=== PATIENT | female | born 1945 | race Caucasian/White ===

== ENCOUNTER 2016-05-25 02:15 | Inpatient (IN) | payer MEDICARE, MEDICAID ==
[2016-05-25] MEDS ORDERED: BELLADONNA ALKALOIDS/PHENOBARB 60 ML BTL PO ONE (02:20)
[2016-05-25] MEDS ORDERED: MAG HYDROX/ALUMINUM HYD/SIMETH 30 ML UDC PO ONE (02:20)
[2016-05-25] MEDS ORDERED: LIDOCAINE HCL 20 ML UDC MM ONE (02:20)
--- NOTE | 2016-05-25 02:28 | ERNOTE ---
Chest Pain/Cardiac HPI Date of Service: 05/25/16 Chief Complaint: Chest Pain Time Seen by Provider: 05/25/16 02:19 Source: patient, EMS Exam Limitations: no limitations Immunizations: IMMUNIZATION HX Immunizations Up to Date Yes History of Influenza Vaccine Yes Hx Pneumococcal Vaccination Yes Allergies/Adverse Reactions: Allergies No Known Drug Allergies Allergy (Verified 05/25/16 02:25) Home Medications: HOME MEDICATIONS Albuterol Sulfate [Proair Hfa] 2 puff IH Q4H PRN 05/25/16 [Last Taken Unknown] Furosemide [Lasix] 80 mg PO BID 05/25/16 [Last Taken Unknown] Insulin Glargine,Hum.rec.anlog [Lantus] 50 unit SQ BID 05/25/16 [Last Taken Unknown] Insulin Regular, Human [Humulin R] 5 unit SC ACHS 05/25/16 [Last Taken Unknown] Levothyroxine Sodium [Synthroid] 125 mcg PO DAILY 05/25/16 [Last Taken Unknown] Nitroglycerin [Nitrostat] 0.4 mg SL Q5MIN PRN 05/25/16 [Last Taken Unknown] Omeprazole 40 mg PO DAILY 05/25/16 [Last Taken Unknown] Rivaroxaban [Xarelto] 20 mg PO DAILY 05/25/16 [Last Taken Unknown] traMADol HCL [Ultram] 50 mg PO Q12H PRN 05/25/16 [Last Taken Unknown] Narrative: 70-year-old female with history of coronary disease and previous TN states that she got up to go to the bathroom early this morning and felt a sharp pain in her chest. When asked for the location of the pain it is actually in her epigastric area and not in her chest. The pain is associated with some shortness of breath but no nausea vomiting or diaphoresis. She was given aspirin and 2 nitroglycerin at the care home and additional nitroglycerin in the ambulance and the pain persisted. EKG shows no acute changes. Review of Systems - Review of Systems Constitutional: Present: no symptoms reported EYE: Present: no symptoms reported ENT: Present: no symptoms reported Respiratory: Present: no symptoms reported Cardiology: Present: See HPI Gastrointestinal/Abdominal: Present: See HPI Genitourinary: Present: no symptoms reported Musculoskeletal: Present: no symptoms reported Skin: Present: no symptoms reported Neurological: Present: no symptoms reported Endocrine: Present: no symptoms reported Hematologic/Lymphatic: Present: no symptoms reported Psych: Present: no symptoms reported - Patient's Past Medical History Patient History - Medical: Anemia, Anxiety, Diabetes Type 2, Depression, GERD, Hypothyroidism, Obesity, Other Patient History - Cardiac/Respiratory: Angina, CHF, COPD, CVA/Stroke, Hypertension, Hyperlipidemia, Myocardial Infarction, Other - Pulmonary hypertension Patient History - Cancer: No Hx of Cancer Patient History - Surgical Procedures: Cataracts, Cholecystectomy, Colonoscopy, EGD, Hysterectomy, Pacemaker, Total Knee Replacement, T & A - Family History Father Family History - Medical: Family History - Cardiac/Respiratory: Coronary Heart Disease Family History - Cancer: Other - cancer type unknown Mother Family History - Medical: Family History - Cancer: Other - cancer, type unkonwn Sister Family History - Medical: Diabetes Type 1, Renal Failure - Social History Living Situations: home Does anyone smoke in the home?: Yes Alcohol Use: none Drug Use: none Physical Exam - Physical Exam General Appearance: Present: wd/wn, alert, moderate distress Eye Exam: Normal inspection: bilateral, PERRL: bilateral Ears, Nose, Throat: Present: normal ENT inspection, hearing grossly normal, normal pharynx Neck: Present: normal inspection, nontender Respiratory: Present: no respiratory distress, normal breath sounds, no accessory muscle use, chest nontender, lungs clear Cardiovascular/Chest: Present: regular rate, rhythm, no murmur, normal peripheral pulses Gastrointestinal/Abdominal: Present: normal bowel sounds, nondistended, soft, no organomegaly, tenderness - marked pain to palpation of the epigastric area which reproduces the patient's "chest pain" Rectal Exam: Present: deferred Back Exam: Present: normal inspection, normal range of motion, no CVA tenderness , no vertebral tenderness Extremity Exam: Present: normal inspection, non-tender, no edema, normal range of motion Neurological Exam: Present: alert, oriented, normal mood/affect, no motor/ sensory deficits Skin Exam: Present: normal color, warm/dry Lymphatic Exam: Present: no adenopathy ED Progress - Results and Orders Patient's Lab Results:: I have reviewed the patient's lab results. Results and Orders: Patient has a marked anemia with a hemoglobin 9.1 but in previous studies most of her hemoglobins are in the range between 9.1 and 9.8 over the past many months. Potassium is low at 3.2. Troponin level was normal at 0.031 but will need to be rechecked in a few hours - Vital Signs Patient's Vital Signs:: I have reviewed the patient's vital signs. - EKG EKG: NSR, supraventricular tachycardia, other - intraventricular conduction delay - X-Ray X-Ray #1 X-Ray: chest - no acute changes Plan - Plan Plan: Patient received no relief from nitroglycerin and only minimal relief with a GI cocktail. Her initial troponin level is 0.031. We will need to admit the patient for further observation and rule out TN with further studies. Discussed with hospitalist Rere Taylor Departure - Departure Clinical Impression: Chest pain of uncertain etiology, Epigastric pain Anemia Qualifiers: Anemia type: unspecified type Qualified Code(s): D64.9 - Anemia, unspecified Disposition: [facility] Condition: Stable Referrals: Adan West MD [Primary Care Provider] -
[2016-05-25 02:54] LABS: Hematocrit 29.8 % (37.0-47.0); Hemoglobin 9.1 gm/dL (12.5-16.0); Mean Cell Volume 86.4 fl (78-100); Mean Corpuscular Hemoglobin 26.4 pg (27-31); Mean Corpuscular Hgb Conc 30.5 g/dl (32-36); Mean Platelet Volume 9.9 fl (6.0-9.5); Neutrophil # 6.5 K/mm3 (1.3-6.0); Platelet Count 283 K/mm3 (150-450); Red Blood Count 3.45 M/mm3 (4.2-5.4); Red Cell Distribution Width 17.8 % (11.5-14.0); White Blood Count 11.2 K/mm3 (4.0-10.5)
[2016-05-25 03:14] LABS: Albumin * 2.7 gm/dl (3.4-5.0); Anion Gap 12.8 mmol/L (6.8-13.8); BUN/Creatinine Ratio 17.5 (9.0-21.6); Bilirubin, Total 0.7 mg/dL (0.0-1.1); Ca. Corrected For Albumin 9.4 mg/dL (8.4-10.2); Calcium * 8.7 mg/dL (7.9-10.9); Carbon Dioxide 29.4 mmol/L (24-32.6); Potassium 3.2 mmol/L (3.4-4.6); Total Protein 6.6 gm/dL (6.2-8.2); Troponin I 0.031 ng/ml (0.00-0.10)
[2016-05-25] MEDS ORDERED: POTASSIUM CHLORIDE 20 MEQ TABLET.SA PO ONE (05:59)
[2016-05-25] MEDS ORDERED: ALBUTEROL SULFATE 200 PUFF INHALER IH PRN (06:03)
[2016-05-25] MEDS ORDERED: NITROGLYCERIN 0.4 MG/TAB BTL SL PRN (06:03)
[2016-05-25] MEDS ORDERED: MAG HYDROX/ALUMINUM HYD/SIMETH 148 ML BTL PO PRN (06:08)
[2016-05-25] MEDS: INSULIN REGULAR, HUMAN 100 UNITS/ML VIAL SC SCH ×4 (06:16→20:17)
[2016-05-25] MEDS ORDERED: DEXTROSE 4 GM/TAB BTL ONE (06:19)
[2016-05-25] MEDS ORDERED: DEXTROSE 4 GM/TAB BTL PO STA (06:21)
--- NOTE | 2016-05-25 06:38 | HP ---
<Rere Taylor - Last Filed: 05/25/16 07:30> Chief Complaint - Chief Complaint Date of Service: 05/25/16 Time of Service: 06:02 Chief Complaint: cp History of Present Illness: Pt is a 70-year-old [facility] pt of Dr. West who presented to the ER with complaints of CP. She states that the pain started this am around 0130. She rates the pain an 8/10, describes the pain as sharp and constant. Location of pain is mid- epigastric area it does not radiate. No other associated symptoms are involved. Nothing makes the pain better, states that with deep breath her pain gets worse. PMH includes:CAD, DMII, KS, CVA, CHF, Pulm HTN, HTN, HLD, hypothyroidism , CRF, and GERD. She was given aspirin and 2 nitroglycerin at the [facility] and additional nitroglycerin in the ambulance and the pain persisted. She was also given a GI cocktail upon arrival to the ER with minimal relief. EKG shows no acute changes. Chest ray revealed stable right lower lung field lentricular opacity suggestive of atelectasis or pseudo-opacity r/t pleural effusion and increased vascular markings. Laboratory findings were significant for H/H 9.1/ 29.8, K+ 3.2, glucose 45, troponin negative. She will be admitted to observation for further treatment and workup including AMI r/o, however given her complicated medical history she could end up with a prolonged medical admission. - Patient's Past Medical History Patient History - Medical: Anemia, Anxiety, Diabetes Type 2, Depression, GERD, Hypothyroidism, Obesity, Other Patient History - Cardiac/Respiratory: Angina, CHF, COPD, CVA/Stroke, Hypertension, Hyperlipidemia, Myocardial Infarction, Other - Pulmonary hypertension Patient History - Cancer: No Hx of Cancer Patient History - Surgical Procedures: Cataracts, Cholecystectomy, Colonoscopy, EGD, Hysterectomy, Pacemaker, Total Knee Replacement, T & A Patient History - Other: None - Family History Father Family History - Medical: Family History - Cardiac/Respiratory: Coronary Heart Disease Family History - Cancer: Other - cancer type unknown Mother Family History - Medical: , Diabetes Type 1 Family History - Cancer: Other - cancer, type unkonwn Sister Family History - Medical: Diabetes Type 1, Renal Failure - Social History Living Situations: [facility] Does anyone smoke in the home?: No Smoking Status: Former smoker Have you smoked in the past 12 months: No Do you dip or chew tobacco: No Smoking Start Date: 05/25/67 Smoking Stop Date: 05/25/72 Patient requests Smoking Cessation Consult: No Initiate information on Smoking Cessation: No Alcohol Use: none Drug Use: none - Immunizations Immunizations Up to Date: Yes Hx Pneumococcal Vaccination: Yes History of Influenza Vaccine: Yes Review Of Systems (GEN) - Review of Systems Generalized/Overall Review: Present: No Symptoms Reported EENTM: Present: No Symptoms Reported Respiratory: Present: No Symptoms Reported Cardiac: Present: Chest Pain - 01/07-however resting comfortable with no s/s of distress Abdominal: Present: No Symptoms Reported Genitourinary: Present: No Symptoms Reported Musculoskeletal: Present: No Symptoms Reported Neurological: Present: No Symptoms Reported Skin: Present: No Symptoms Reported Endocrine: Present: No Symptoms Reported Allergies/Adverse Reactions: Allergies Allergy/AdvReac Type Severity Reaction Status Date / Time No Known Drug Allergies Allergy Verified 05/25/16 02:25 Home Medications: HOME MEDICATIONS Albuterol Sulfate [Proair Hfa] 2 puff IH Q4H PRN 05/25/16 [Last Taken Unknown] Furosemide [Lasix] 80 mg PO BID 05/25/16 [Last Taken Unknown] Insulin Glargine,Hum.rec.anlog [Lantus] 50 unit SQ BID 05/25/16 [Last Taken Unknown] Insulin Regular, Human [Humulin R] 5 unit SC ACHS 05/25/16 [Last Taken Unknown] Levothyroxine Sodium [Synthroid] 125 mcg PO DAILY 05/25/16 [Last Taken Unknown] Nitroglycerin [Nitrostat] 0.4 mg SL Q5MIN PRN 05/25/16 [Last Taken Unknown] Omeprazole 40 mg PO DAILY 05/25/16 [Last Taken Unknown] Rivaroxaban [Xarelto] 20 mg PO DAILY 05/25/16 [Last Taken Unknown] traMADol HCL [Ultram] 50 mg PO Q12H PRN 05/25/16 [Last Taken Unknown] Exam - Exam Vital Signs: Vital Signs - Last Taken Temp 36.3 C L 05/25/16 04:37 Pulse 104 H 05/25/16 04:37 Resp 24 H 05/25/16 04:37 BP 115/66 05/25/16 04:37 Pulse Ox 95 05/25/16 04:37 Constitutional: Present: Alert, Oriented x3, Cooperative, No distress, Morbidly obese ENT Exam: Present: normal ENT inspection, hearing grossly normal Eye Exam: bilateral eye: normal inspection, PERRL Back Exam: Present: normal inspection Respiratory: Present: chest non-tender, no respiratory distress, no accessory muscle use, decreased breath sounds Cardiovascular/Chest: Present: normal peripheral pulses, regular rate, rhythm, no murmur, other - left chest permanet pacemaker present Peripheral Pulses: dorsalis-pedis (R): 2+, dorsalis-pedis (L): 2+, radial (R): 2 +, radial (L): 2+ Abdomen: Present: Normal bowel sounds, soft, nontender Extremity: Present: normal range of motion, non-tender, normal inspection, no calf tenderness, normal capillary refill, lower extremity edema - +2 pitting, pedal edema Skin Exam: Present: normal color, warm/dry, no cyanosis Neurologic: Present: no motor/sensory deficits, alert, normal mood/affect, oriented x 3 Appearance: Present: appropriate appearance, appropriate insight, neat Eye contact: Present: cooperative, good eye contact, normal speech Thoughts: Present: normal thought pattern, no apparent hallucination Diagnostic Studies: Laboratory Results Laboratory Tests 05/25/16 05/25/16 05/25/16 02:40 02:40 06:40 WBC 11.2 H RBC 3.45 L Hgb 9.1 L Hct 29.8 L Plt Count 283 Sodium 144 H Potassium 3.2 L BUN 29 H Creatinine 1.66 H BUN/Creatinine Ratio 17.5 AST 12 ALT 15 L Alkaline Phosphatase 85 Troponin I 0.031 B-Natriuretic Peptide 5096 H Total Protein 6.6 Albumin 2.7 L Assessment/Plan - Assessment/Plan (1) Chest pain of uncertain etiology Assessment: Unclear etiology at this point. Pain was reproducible with palpation by ER MD, however not on my examine. Pt states the pain is a 8/10, but is resting comfortably with no s/s of distress. All cardiac markers have been negative. Chest ray with increase vascular markings and trace right pleural effusion, BNP elevated in the 5000's, this is probably the source of pain, will diuresis appropriately and continue to monitor for today. -Repeat troponin at 0700 -Continuous telemetry -Maalox PRN for indigestion Problem: Acute (2) Anemia of chronic disease Assessment: Anemia of chronic disease. H/H stable at 9.1/29.8---> baseline . -CBC in am Problem: Chronic (3) CKD (chronic kidney disease), stage III Assessment: Creatinine stable at 1.66---> baseline 1.6. Repeat labs in am. -CMP in am Problem: Chronic (4) COPD (chronic obstructive pulmonary disease) Assessment: Stable -Proair 2puffs BID Problem: Chronic QualifierTitle: COPD type: C Chronic bronchitis type: C Emphysema type : E (5) Chronic systolic CHF (congestive heart failure) Assessment: Chest xray with slightly increased vascular markings from prior. Trace right pleural effusion. BNP elevated in the 5000's. BLE edema. Will switch to IV lasix , add PO K+ and repeat labs in the morning. -DC PO lasix -CMP in am -20meq PO K+ TID -80meq IV lasix BID -BNP in am -IS Problem: Chronic (6) Depression Problem: Chronic QualifierTitle: Depression Type: D Major depression recurrence: recurrent Active/Remission status: A Major depression episode severity: M Psychotic features: P Trimester: T (7) Diabetes mellitus Assessment: Pt hypoglycemic at 45 on ER labs, recheck upon floor 35. Pt without any s/s, alert and oriented. Hypoglycemic protocol followed. Eventually up to 73, pt received early breakfast tray. Will hold lantus this am and resume at 40 units this evening and from here on out. Pt stated that did not eat dinner last night , as this is likely the source of her hypoglycemia. Will continue to monitor throughout the day. -Hold am lantus -Lantus 40 units begin this evening -Humulin 5 units ac/hs -Consistent Card diet -Accu checks ac/hs Problem: Chronic QualifierTitle: Diabetes mellitus type: type 2 Diabetes mellitus complication status: D Diabetes mellitus complication detail: with chronic kidney disease Diabetic retinopathy severity: D Proliferative retinopathy type: P Diabetes mellitus macular edema: D Diabetes mellitus detention insulin use: D Laterality: L Chronic kidney disease stage: C (8) GERD (gastroesophageal reflux disease) Assessment: Stable -Protonix 40mg PO daily Problem: Chronic QualifierTitle: Esophagitis presence: E (9) Hypokalemia Assessment: 3.2 on admission labs. Not on any daily potassium supplement with lasix. 40meq now then 20meq TID with increase in lasix due to acute exacerbation of CHF. -20mEq po potassium TID -Repeat labs in am -40meq now Problem: Acute (10) Hyperlipidemia Assessment: Stable Problem: Chronic QualifierTitle: Hyperlipidemia type: H (11) Hypothyroidism Assessment: Stable -Synthroid 125mcg daily Problem: Chronic QualifierTitle: Hypothyroidism type: H <Juan Meza - Last Filed: 05/25/16 11:33> Immunizations: IMMUNIZATION HX Immunizations Up to Date Yes History of Influenza Vaccine Yes Hx Pneumococcal Vaccination Yes Exam - Exam Vital Signs: Vital Signs - Last Taken Temp 36.6 C 05/25/16 10:59 Pulse 107 H 05/25/16 11:06 Resp 22 H 05/25/16 11:06 BP 137/76 05/25/16 10:59 Pulse Ox 97 05/25/16 11:06 Diagnostic Studies: Abnormal Lab Results 05/25/16 05/25/16 Range/Units 06:40 06:45 Random Glucose 41 L (70-110) mg/dL B-Natriuretic Peptide 5096 H (5-325) pg/mL Laboratory Results WBC 11.2 K/mm3 (4.0-10.5) H 05/25/16 02:40 RBC 3.45 M/mm3 (4.2-5.4) L 05/25/16 02:40 Hgb 9.1 gm/dL (12.5-16.0) L 05/25/16 02:40 Hct 29.8 % (37.0-47.0) L 05/25/16 02:40 MCV 86.4 fl (78-100) 05/25/16 02:40 MCH 26.4 pg (27-31) L 05/25/16 02:40 MCHC 30.5 g/dl (32-36) L 05/25/16 02:40 RDW 17.8 % (11.5-14.0) H 05/25/16 02:40 Plt Count 283 K/mm3 (150-450) 05/25/16 02:40 MPV 9.9 fl (6.0-9.5) H 05/25/16 02:40 Immature Gran % (Auto) 0.70 % (0.001-0.429) H 05/25/16 02:40 Immature Gran # (Auto) 0.08 K/mm3 (0.000-0.0310) H 05/25/16 02:40 Neutrophils % 58.0 % (42-75.0) 05/25/16 02:40 Lymphocytes % 34.1 % (20-51) 05/25/16 02:40 Monocytes % 5.6 % (0.0-9) 05/25/16 02:40 Eosinophils % 1.2 % (0.0-3.0) 05/25/16 02:40 Basophils % 0.4 % (0.0-1.0) 05/25/16 02:40 Nucleated RBC % 0.0 k/mm3 (0-1) 05/25/16 02:40 Neutrophils # 6.5 K/mm3 (1.3-6.0) H 05/25/16 02:40 Lymphocytes # 3.8 k/mm3 (1.5-3.5) H 05/25/16 02:40 Monocytes # 0.6 k/mm3 (0.0-1.0) 05/25/16 02:40 Eosinophils # 0.1 k/mm3 (0.0-0.7) 05/25/16 02:40 Absolute Basophils 0.0 k/mm3 (0.0-0.1) 05/25/16 02:40 Sodium 144 mmol/L (132-142) H 05/25/16 02:40 Plasma Sodium 143 mmol/L (130-142) H 05/25/16 02:40 Potassium 3.2 mmol/L (3.4-4.6) L 05/25/16 02:40 Chloride 105 mmol/L (97-106) 05/25/16 02:40 Carbon Dioxide 29.4 mmol/L (24-32.6) 05/25/16 02:40 Anion Gap 12.8 mmol/L (6.8-13.8) 05/25/16 02:40 BUN 29 mg/dL (3-23) H 05/25/16 02:40 Creatinine 1.66 mg/dL (0.4-1.4) H 05/25/16 02:40 Est GFR (Non-Af Amer) 33 mL/min (60-130) L 05/25/16 02:40 BUN/Creatinine Ratio 17.5 (9.0-21.6) 05/25/16 02:40 Random Glucose 41 mg/dL (70-110) L 05/25/16 06:45 Calcium 8.7 mg/dL (7.9-10.9) 05/25/16 02:40 Calcium Adj for Albumin 9.4 mg/dL (8.4-10.2) 05/25/16 02:40 Total Bilirubin 0.7 mg/dL (0.0-1.1) 05/25/16 02:40 AST 12 U/L (0-48) 05/25/16 02:40 ALT 15 U/L (19-67) L 05/25/16 02:40 Alkaline Phosphatase 85 U/L (50-170) 05/25/16 02:40 Troponin I 0.026 ng/ml (0.00-0.10) 05/25/16 06:45 B-Natriuretic Peptide 5096 pg/mL (5-325) H 05/25/16 06:40 Total Protein 6.6 gm/dL (6.2-8.2) 05/25/16 02:40 Albumin 2.7 gm/dl (3.4-5.0) L 05/25/16 02:40 Assessment/Plan - Procedures Results: Patient has evidence for acute on chronic CHF on exam. I have reviewed the record and examined the patient. She is not a simple chest pain r/o, but a chest pain due to acute CHF. We will admit to acute, diurese with IV Lasix and monitor closely. I estimate a hospital stay of 3 days. I directly supervised all of [facility]'s care for this patient.
[2016-05-25 07:02] LABS: Troponin I 0.026 ng/ml (0.00-0.10)
[2016-05-25] MEDS: PANTOPRAZOLE SODIUM 40 MG TABLET.EC PO SCH (08:44)
[2016-05-25] MEDS: POTASSIUM CHLORIDE 20 MEQ TABLET.SA PO SCH ×3 (08:45→16:24)
[2016-05-25] MEDS ORDERED: INSULIN GLARGINE,HUM.REC.ANLOG 100 UNITS/ML VIAL SC SCH (09:00)
[2016-05-25] MEDS ORDERED: FUROSEMIDE 10 MG/ML VIAL IV SCH ×2 (09:00→11:30)
[2016-05-25] MEDS ORDERED: FUROSEMIDE 80 MG TABLET PO SCH (09:00)
[2016-05-25] MEDS: LEVOTHYROXINE SODIUM 125 MCG TABLET PO SCH (10:02)
[2016-05-25] MEDS: RIVAROXABAN 20 MG TABLET PO SCH (10:02)
[2016-05-25] MEDS: MAG HYDROX/ALUMINUM HYD/SIMETH 30 ML UDC PO PRN ×2 (10:56→21:05)
[2016-05-25] MEDS: ALBUTEROL SULFATE 2.5 MG/0.5 ML VIAL.NEB IH PRN ×2 (11:06→21:54)
[2016-05-25] MEDS: FUROSEMIDE 10 MG/ML VIAL IV SCH (20:04)
[2016-05-25] MEDS: traMADol HCL 50 MG TABLET PO PRN (21:05)
[2016-05-25] MEDS: INSULIN GLARGINE,HUM.REC.ANLOG 100 UNITS/ML VIAL SC SCH (22:12)
[2016-05-25] MEDS: ALPRAZolam 0.25 MG TABLET PO PRN (22:21)
[2016-05-26 06:18] LABS: Hematocrit 29.9 % (37.0-47.0); Hemoglobin 9.3 gm/dL (12.5-16.0); Mean Cell Volume 86.4 fl (78-100); Mean Corpuscular Hemoglobin 26.9 pg (27-31); Mean Corpuscular Hgb Conc 31.1 g/dl (32-36); Mean Platelet Volume 10.1 fl (6.0-9.5); Neutrophil # 5.6 K/mm3 (1.3-6.0); Neutrophil % 65.4 % (42-75.0); Platelet Count 265 K/mm3 (150-450); Red Blood Count 3.46 M/mm3 (4.2-5.4); Red Cell Distribution Width 17.8 % (11.5-14.0); White Blood Count 8.6 K/mm3 (4.0-10.5)
[2016-05-26] MEDS: INSULIN REGULAR, HUMAN 100 UNITS/ML VIAL SC SCH ×4 (06:34→20:42)
[2016-05-26] MEDS: PANTOPRAZOLE SODIUM 40 MG TABLET.EC PO SCH (06:35)
[2016-05-26 06:53] LABS: Albumin * 2.7 gm/dl (3.4-5.0); Anion Gap 13.2 mmol/L (6.8-13.8); BUN/Creatinine Ratio 21.2 (9.0-21.6); Bilirubin, Total 0.7 mg/dL (0.0-1.1); Ca. Corrected For Albumin 9.3 mg/dL (8.4-10.2); Calcium * 8.6 mg/dL (7.9-10.9); Carbon Dioxide 29.6 mmol/L (24-32.6); Estimated Creat Clear 29.4; Potassium 3.8 mmol/L (3.4-4.6); T4 Free * 1.42 ng/dL (0.76-1.46); TSH * 1.055 uIU/mL (0.358-3.74); Total Protein 6.7 gm/dL (6.2-8.2)
[2016-05-26] MEDS: POTASSIUM CHLORIDE 20 MEQ TABLET.SA PO SCH ×3 (09:18→17:08)
[2016-05-26] MEDS: RIVAROXABAN 20 MG TABLET PO SCH (09:18)
[2016-05-26] MEDS: LEVOTHYROXINE SODIUM 125 MCG TABLET PO SCH (09:18)
[2016-05-26] MEDS: FUROSEMIDE 10 MG/ML VIAL IV SCH ×2 (09:19→20:43)
[2016-05-26] MEDS: INSULIN GLARGINE,HUM.REC.ANLOG 100 UNITS/ML VIAL SC SCH (09:19)
[2016-05-26] MEDS: traMADol HCL 50 MG TABLET PO PRN (11:09)
[2016-05-26] MEDS: ALPRAZolam 0.25 MG TABLET PO PRN (11:09)
--- NOTE | 2016-05-26 18:02 | PN ---
Subjective - Date and Time Seen Date: 05/26/16 Time: 17:51 Subjective Narrative: Still with orthopnea and PND, but slowly improving. Also, TURPIN, which is new in the last few weeks. Previous Echo was July 2011, and showed 40% EF and mild to mod MR. Treatment now is IV Lasix. Chest pain, that is angina, has improved. Objective - Review of Systems Generalized/Overall Review: Reports: Malaise EENTM: Reports: No Symptoms Reported Respiratory: Reports: Shortness of Breath, Orthopnea Cardiac: Reports: Chest Pain, Edema Abdominal: Reports: No Symptoms Reported Genitourinary Symptoms: Reports: No Symptoms Reported Musculoskeletal Complaints: Reports: No Symptoms Reported Neurological: Reports: No Symptoms Reported Skin: Reports: No Symptoms Reported Endocrine: Reports: No Symptoms Reported Misc: All systems neg except as marked - Vitals Vitals: Last Vital Signs Selected Entries 05/26/16 05/26/16 14:02 16:00 Temperature 36.6 C Temperature Oral Source Pulse Rate 100 98 Respiratory 20 Rate Blood Pressure 111/68 Blood Pressure Sitting Position O2 Sat by Pulse 92 Oximetry Oxygen Delivery Room Air Method - Abnormal Lab Findings Abnormal Lab Findings: Abnormal Lab Results 05/26/16 05/26/16 Range/Units 06:05 06:05 RBC 3.46 L (4.2-5.4) M/mm3 Hgb 9.3 L (12.5-16.0) gm/dL Hct 29.9 L (37.0-47.0) % MCH 26.9 L (27-31) pg MCHC 31.1 L (32-36) g/dl RDW 17.8 H (11.5-14.0) % MPV 10.1 H (6.0-9.5) fl BUN 33 H (3-23) mg/dL Creatinine 1.56 H (0.4-1.4) mg/dL Est GFR (Non-Af Amer) 35 L (60-130) mL/min Random Glucose 67 L D (70-110) mg/dL ALT 16 L (19-67) U/L B-Natriuretic Peptide 4384 H (5-325) pg/mL Albumin 2.7 L (3.4-5.0) gm/dl - Exam Constitutional: Present: Alert, Oriented x3, Cooperative, Well developed, No distress, Morbidly obese ENT Exam: Present: normal ENT inspection, hearing grossly normal, pharynx normal , TMs normal Neck: Present: normal inspection Respiratory: Present: no respiratory distress, rales Cardiovascular/Chest: Present: regular rate, rhythm, no murmur Abdomen: Present: Normal bowel sounds, soft, nontender, nondistended, no rebound tenderness, no hepatospenomegaly, no masses, obese Extremity: Present: pedal edema Skin Exam: Present: normal color, warm/dry, no cyanosis Neurologic: Present: alert, oriented x 3 Appearance: Present: appropriate appearance, neat Eye contact: Present: cooperative, good eye contact, normal speech Thoughts: Present: normal thought pattern Assessment/Plan Plan Narrative: Continue IV lasix. Follow labs. CHF teaching. Echo tomorrow. - Problems/Diagnosis (1) Acute renal failure superimposed on stage 3 chronic kidney disease Problem: Acute (2) Angina at rest Problem: Acute Narrative: Angina due to acute on chronic systolic CHF, improving, but not gone. Also, still has orthopnea, PND and TURPIN, though all of these are improving too. (3) Hypokalemia Problem: Acute (4) Acute on chronic systolic (congestive) heart failure Problem: Acute (5) Tremor Problem: Chronic (6) Weakness generalized Problem: Acute (7) ASHD (arteriosclerotic heart disease) Problem: Chronic (8) Anemia of chronic disease Problem: Chronic (9) COPD (chronic obstructive pulmonary disease) Problem: Chronic Qualifiers: COPD type: unspecified COPD Chronic bronchitis type: C Emphysema type: E Qualified Code(s): J44.9 - Chronic obstructive pulmonary disease, unspecified (10) Depression Problem: Chronic Qualifiers: Depression Type: D Major depression recurrence: recurrent Active/ Remission status: currently active Major depression episode severity: mild Psychotic features: P Trimester: T Qualified Code(s): F33.0 - Major depressive disorder, recurrent, mild (11) GERD (gastroesophageal reflux disease) Problem: Chronic Qualifiers: Esophagitis presence: without esophagitis Qualified Code(s): K21.9 - Gastro -esophageal reflux disease without esophagitis (12) Hyperlipidemia Problem: Chronic Qualifiers: Hyperlipidemia type: H (13) Hypothyroidism Problem: Chronic Qualifiers: Hypothyroidism type: acquired Qualified Code(s): E03.9 - Hypothyroidism, unspecified (14) Morbid obesity Problem: Chronic Qualifiers: Obesity type: due to excess calories Qualified Code(s): E66.01 - Morbid ( severe) obesity due to excess calories (15) Type II diabetes mellitus Problem: Chronic Qualifiers: Diabetes mellitus complication status: without complication Diabetes mellitus complication detail: D Diabetic retinopathy severity: D Proliferative retinopathy type: P Diabetes mellitus macular edema: D Diabetes mellitus detention insulin use: with detention use Laterality: L Chronic kidney disease stage: C Qualified Code(s): E11.9 - Type 2 diabetes mellitus without complications (16) Hypernatremia Problem: Acute
[2016-05-26] MEDS ORDERED: INSULIN GLARGINE,HUM.REC.ANLOG 100 UNITS/ML VIAL SC SCH (21:00)
[2016-05-27 05:38] LABS: Hematocrit 31.3 % (37.0-47.0); Hemoglobin 9.6 gm/dL (12.5-16.0); Mean Cell Volume 85.8 fl (78-100); Mean Corpuscular Hemoglobin 26.3 pg (27-31); Mean Corpuscular Hgb Conc 30.7 g/dl (32-36); Mean Platelet Volume 9.9 fl (6.0-9.5); Neutrophil # 6.7 K/mm3 (1.3-6.0); Neutrophil % 74.3 % (42-75.0); Platelet Count 266 K/mm3 (150-450); Red Blood Count 3.65 M/mm3 (4.2-5.4); Red Cell Distribution Width 17.5 % (11.5-14.0); White Blood Count 9.1 K/mm3 (4.0-10.5)
[2016-05-27 06:35] LABS: Anion Gap 12.3 mmol/L (6.8-13.8); BUN/Creatinine Ratio 22.1 (9.0-21.6); Carbon Dioxide 31.4 mmol/L (24-32.6); Estimated Creat Clear 29.8; Potassium 3.7 mmol/L (3.4-4.6)
[2016-05-27] MEDS: INSULIN REGULAR, HUMAN 100 UNITS/ML VIAL SC SCH ×4 (07:12→20:11)
[2016-05-27] MEDS: PANTOPRAZOLE SODIUM 40 MG TABLET.EC PO SCH (07:14)
[2016-05-27] MEDS: FUROSEMIDE 10 MG/ML VIAL IV SCH ×3 (09:06→23:49)
[2016-05-27] MEDS: LEVOTHYROXINE SODIUM 125 MCG TABLET PO SCH (09:08)
[2016-05-27] MEDS: POTASSIUM CHLORIDE 20 MEQ TABLET.SA PO SCH ×3 (09:09→16:00)
[2016-05-27] MEDS: RIVAROXABAN 20 MG TABLET PO SCH (09:10)
[2016-05-27] MEDS: INSULIN GLARGINE,HUM.REC.ANLOG 100 UNITS/ML VIAL SC SCH ×2 (09:15→20:11)
--- NOTE | 2016-05-27 10:07 | PN ---
<Dave Keenan - Last Filed: 05/27/16 13:04> Subjective - Date and Time Seen Date: 05/27/16 Time: 08:00 Subjective Narrative: patient seen today sitting up in bed, pt stated she is feeling a little better than she did yesterday. She is able to walk to bathroom without excessive shortness of breath, no chest pain , palpitation. However she reports orthopnea while laying down and get relieve with sitting. Objective - Review of Systems Generalized/Overall Review: Reports: No Symptoms Reported EENTM: Reports: No Symptoms Reported Respiratory: Reports: Shortness of Breath, Orthopnea, Wheezing Cardiac: Reports: No Symptoms Reported Abdominal: Reports: No Symptoms Reported Genitourinary Symptoms: Reports: No Symptoms Reported Musculoskeletal Complaints: Reports: No Symptoms Reported Neurological: Reports: No Symptoms Reported - Vitals Vitals: Last Vital Signs Temp 36.3 C L 05/27/16 06:56 Pulse 94 05/27/16 09:06 Resp 18 05/27/16 06:56 BP 129/75 05/27/16 09:06 Pulse Ox 94 05/27/16 06:56 - Abnormal Lab Findings Abnormal Lab Findings: Abnormal Lab Results 05/27/16 05/27/16 Range/Units 05:15 05:15 RBC 3.65 L (4.2-5.4) M/mm3 Hgb 9.6 L (12.5-16.0) gm/dL Hct 31.3 L (37.0-47.0) % MCH 26.3 L (27-31) pg MCHC 30.7 L (32-36) g/dl RDW 17.5 H (11.5-14.0) % MPV 9.9 H (6.0-9.5) fl Immature Gran # (Auto) 0.04 H (0.000-0.0310) K/mm3 Lymphocytes % 17.3 L (20-51) % Neutrophils # 6.7 H (1.3-6.0) K/mm3 BUN 34 H (3-23) mg/dL Creatinine 1.54 H (0.4-1.4) mg/dL Est GFR (Non-Af Amer) 36 L (60-130) mL/min BUN/Creatinine Ratio 22.1 H (9.0-21.6) Random Glucose 40 L D (70-110) mg/dL - Exam Constitutional: Present: Alert, Oriented x3, Cooperative, Well developed, No distress, Elderly, Obese ENT Exam: Present: normal ENT inspection Neck: Present: non-tender Breasts: Present: Exam deferred Respiratory: Present: chest non-tender, no respiratory distress, decreased breath sounds, rhonchi, wheezing Cardiovascular/Chest: Present: normal peripheral pulses, no chest tenderness, no JVD Abdomen: Present: Normal bowel sounds, soft, nontender, nondistended Extremity: Present: lower extremity edema, pedal edema, slow capillary refill Skin Exam: Present: normal color, warm/dry Neurologic: Present: oriented x 3 Appearance: Present: appropriate appearance Eye contact: Present: cooperative Thoughts: Present: normal thought pattern Assessment/Plan Plan Narrative: (1) Acute renal failure superimposed on stage 3 chronic kidney disease Problem: Acute On adm cre 1.66---->1.56---->1.54 gradually improving (2) Angina at rest: resolved Angina due to acute on chronic systolic CHF, improving, but not gone. Also, still has orthopnea, PND and TURPIN, though all of these are improving too. (3) Hypokalemia likely due to diuretics usage. continue with k-dur 20 meq (4) Acute on chronic systolic (congestive) heart failure on adm BNP 5096----> 4384 gradually improving Continue with IV lasix for diuresis 2D Echo pending weight 136.8kg----> 136.4kg (5) Tremor Problem: Chronic (6) Weakness generalized Problem: Acute (7) ASHD (arteriosclerotic heart disease) Problem: Chronic (8) Anemia of chronic disease on adm hgb 9.3---->9.6 (9) COPD (chronic obstructive pulmonary disease) Continue with supplemented oxygen continue with nebulizer treatments (10) Depression-stable (11) GERD (gastroesophageal reflux disease) (12) Hyperlipidemia Problem: Chronic Qualifiers: Hyperlipidemia type: H (13) Hypothyroidism stable continue with synthroid (14) Morbid obesity Problem: Chronic Qualifiers: Obesity type: due to excess calories Qualified Code(s): E66.01 - Morbid ( severe) obesity due to excess calories (15) Type II diabetes mellitus accu-check and sliding scale insulin Continue with Humulin 5 units and lantus as schedule this morning BG 42mg/dl------> pt asymptomatic, she was given meals and re-eval BG----->170mg/dl improved after meal (16) Hypernatremia- resolved Problem: Acute - Problems/Diagnosis (1) Chronic systolic CHF (congestive heart failure) Problem: Chronic (2) COPD (chronic obstructive pulmonary disease) Problem: Chronic QualifierTitle: COPD type: unspecified COPD Chronic bronchitis type: C Emphysema type: E Qualified Code(s): J44.9 - Chronic obstructive pulmonary disease, unspecified (3) Type II diabetes mellitus Problem: Chronic QualifierTitle: Diabetes mellitus complication status: without complication Diabetes mellitus complication detail: D Diabetic retinopathy severity: D Proliferative retinopathy type: P Diabetes mellitus macular edema: D Diabetes mellitus longterm insulin use: with intermission coordinator use Laterality: L Chronic kidney disease stage: C Qualified Code(s): E11.9 - Type 2 diabetes mellitus without complications; Z79.4 - roasterman (current) use of insulin (4) CKD (chronic kidney disease), stage III Problem: Chronic (5) Hypokalemia Problem: Acute <Juan Meza - Last Filed: 05/27/16 20:20> Objective - Vitals Vitals: Last Vital Signs Temp 36.7 C 05/27/16 18:26 Pulse 97 05/27/16 18:26 Resp 20 05/27/16 18:26 BP 96/56 05/27/16 18:26 Pulse Ox 100 05/27/16 18:45 - Abnormal Lab Findings Abnormal Lab Findings: Abnormal Lab Results 05/27/16 05/27/16 Range/Units 05:15 05:15 RBC 3.65 L (4.2-5.4) M/mm3 Hgb 9.6 L (12.5-16.0) gm/dL Hct 31.3 L (37.0-47.0) % MCH 26.3 L (27-31) pg MCHC 30.7 L (32-36) g/dl RDW 17.5 H (11.5-14.0) % MPV 9.9 H (6.0-9.5) fl Immature Gran # (Auto) 0.04 H (0.000-0.0310) K/mm3 Lymphocytes % 17.3 L (20-51) % Neutrophils # 6.7 H (1.3-6.0) K/mm3 BUN 34 H (3-23) mg/dL Creatinine 1.54 H (0.4-1.4) mg/dL Est GFR (Non-Af Amer) 36 L (60-130) mL/min BUN/Creatinine Ratio 22.1 H (9.0-21.6) Random Glucose 40 L D (70-110) mg/dL Assessment/Plan Plan Narrative: Chart reviewed. Patient examined. I directly supervised all of Dave Keenan's care of this patient. She is a little better, but not much. We will continue with the IV Lasix and follow her labs. - Problems/Diagnosis (1) Acute renal failure superimposed on stage 3 chronic kidney disease Problem: Acute (2) Angina at rest Problem: Acute (3) Hypokalemia Problem: Acute (4) Acute on chronic systolic (congestive) heart failure Problem: Acute (5) Tremor Problem: Chronic (6) Weakness generalized Problem: Acute (7) ASHD (arteriosclerotic heart disease) Problem: Chronic (8) Anemia of chronic disease Problem: Chronic (9) COPD (chronic obstructive pulmonary disease) Problem: Chronic Qualifiers: COPD type: unspecified COPD Qualified Code(s): J44.9 - Chronic obstructive pulmonary disease, unspecified (10) Depression Problem: Chronic Qualifiers: Major depression recurrence: recurrent Active/Remission status: currently active Major depression episode severity: mild Qualified Code(s): F33.0 - Major depressive disorder, recurrent, mild (11) GERD (gastroesophageal reflux disease) Problem: Chronic Qualifiers: Esophagitis presence: without esophagitis Qualified Code(s): K21.9 - Gastro -esophageal reflux disease without esophagitis (12) Hyperlipidemia Problem: Chronic Qualifiers: (13) Hypothyroidism Problem: Chronic Qualifiers: Hypothyroidism type: acquired (14) Morbid obesity Problem: Chronic Qualifiers: Obesity type: due to excess calories Qualified Code(s): E66.01 - Morbid ( severe) obesity due to excess calories (15) Type II diabetes mellitus Problem: Chronic Qualifiers: Diabetes mellitus complication status: without complication Diabetes mellitus longterm insulin use: with intermission coordinator use Qualified Code(s): E11.9 - Type 2 diabetes mellitus without complications; Z79.4 - retirement (current) use of insulin (16) Hypernatremia Problem: Acute
[2016-05-27] MEDS: ALBUTEROL SULFATE 2.5 MG/0.5 ML VIAL.NEB IH PRN ×2 (13:16→18:45)
[2016-05-28 05:35] LABS: Hematocrit 30.1 % (37.0-47.0); Hemoglobin 9.3 gm/dL (12.5-16.0); Mean Cell Volume 85.8 fl (78-100); Mean Corpuscular Hemoglobin 26.5 pg (27-31); Mean Corpuscular Hgb Conc 30.9 g/dl (32-36); Mean Platelet Volume 9.8 fl (6.0-9.5); Neutrophil # 6.6 K/mm3 (1.3-6.0); Neutrophil % 71.7 % (42-75.0); Platelet Count 263 K/mm3 (150-450); Red Blood Count 3.51 M/mm3 (4.2-5.4); Red Cell Distribution Width 17.3 % (11.5-14.0); White Blood Count 9.2 K/mm3 (4.0-10.5)
[2016-05-28 05:52] LABS: BUN/Creatinine Ratio 19.1 (9.0-21.6); Calcium * 8.7 mg/dL (7.9-10.9); Carbon Dioxide 31.4 mmol/L (24-32.6); Estimated Creat Clear 28.3; Potassium 3.4 mmol/L (3.4-4.6)
[2016-05-28] MEDS: INSULIN REGULAR, HUMAN 100 UNITS/ML VIAL SC SCH ×3 (06:26→17:13)
[2016-05-28] MEDS: PANTOPRAZOLE SODIUM 40 MG TABLET.EC PO SCH (06:27)
[2016-05-28] MEDS: FUROSEMIDE 10 MG/ML VIAL IV SCH ×3 (09:09→23:39)
[2016-05-28] MEDS: RIVAROXABAN 20 MG TABLET PO SCH (09:12)
[2016-05-28] MEDS: LEVOTHYROXINE SODIUM 125 MCG TABLET PO SCH (09:12)
[2016-05-28] MEDS: POTASSIUM CHLORIDE 20 MEQ TABLET.SA PO SCH ×3 (09:13→17:13)
[2016-05-28] MEDS: TROLAMINE SALICYLATE 90 APPL TUBE TP SCH ×2 (09:19→20:41)
[2016-05-28] MEDS: INSULIN GLARGINE,HUM.REC.ANLOG 100 UNITS/ML VIAL SC SCH ×2 (09:20→20:38)
--- NOTE | 2016-05-28 09:44 | PN ---
Subjective - Date and Time Seen Date: 05/28/16 Time: 08:00 Subjective Narrative: patient seen today sitting up in chair stated her chest wall was feeling a bit tender, pain is reproducible with palpation. she denies chest pain, cough, shortness of breath, palpitation and diaphoresis. Objective - Review of Systems Generalized/Overall Review: Reports: No Symptoms Reported EENTM: Reports: No Symptoms Reported Respiratory: Reports: No Symptoms Reported Cardiac: Reports: Other - sternum discomfort Abdominal: Reports: No Symptoms Reported Genitourinary Symptoms: Reports: No Symptoms Reported Musculoskeletal Complaints: Reports: No Symptoms Reported Neurological: Reports: Headache Skin: Reports: No Symptoms Reported Endocrine: Reports: No Symptoms Reported - Vitals Vitals: Last Vital Signs Temp 36.7 C 05/28/16 06:34 Pulse 103 H 05/28/16 09:09 Resp 20 05/28/16 06:34 BP 112/62 05/28/16 09:09 Pulse Ox 93 05/28/16 06:34 - Abnormal Lab Findings Abnormal Lab Findings: Abnormal Lab Results 05/28/16 05/28/16 05/28/16 Range/Units 05:15 05:15 08:04 RBC 3.51 L (4.2-5.4) M/mm3 Hgb 9.3 L (12.5-16.0) gm/dL Hct 30.1 L (37.0-47.0) % MCH 26.5 L (27-31) pg MCHC 30.9 L (32-36) g/dl RDW 17.3 H (11.5-14.0) % MPV 9.8 H (6.0-9.5) fl Lymphocytes % 19.5 L (20-51) % Neutrophils # 6.6 H (1.3-6.0) K/mm3 BUN 31 H (3-23) mg/dL Creatinine 1.62 H (0.4-1.4) mg/dL Est GFR (Non-Af Amer) 33 L (60-130) mL/min Random Glucose 47 L (70-110) mg/dL B-Natriuretic Peptide 3812 H (5-325) pg/mL - Exam Constitutional: Present: Alert, Oriented x3, Cooperative Neck: Present: full range of motion Respiratory: Present: chest non-tender, lungs clear, normal breath sounds, no respiratory distress Cardiovascular/Chest: Present: chest tender - sternum and ribs Abdomen: Present: Normal bowel sounds, soft, nontender, nondistended /Rectal: Present: Exam deferred Extremity: Present: normal range of motion, normal inspection, lower extremity edema - +1 edema Skin Exam: Present: normal color, warm/dry, no cyanosis Neurologic: Present: oriented x 3 Appearance: Present: appropriate appearance Eye contact: Present: cooperative, good eye contact Thoughts: Present: normal thought pattern Assessment/Plan Plan Narrative: COPD (chronic obstructive pulmonary disease) Continue with supplemented oxygen continue with nebulizer treatments Acute renal failure superimposed on stage 3 chronic kidney disease Problem: Acute On adm cre 1.66---->1.56---->1.54 ----.1.62 slight bump today continue to monitor BMP in am Type II diabetes mellitus consistent trend for hypoglycemic in the mornings, insulin dose and frequency adjusted. Humulin 5 units TID with meals and lantus 10units Q12hrs Accu-check and sliding scale insulin Acute on chronic systolic (congestive) heart failure on adm BNP 5096----> 4384-----> 3812 ----->gradually improving Continue with IV lasix for diuresis weight 136.8kg----> 136.4kg----->134.7kg gradually improving 2D echo pending Depression stable Ensure supplements with meals Tremor Problem: Chronic Weakness generalized Problem: Acute ASHD (arteriosclerotic heart disease) Problem: Chronic Anemia of chronic disease on adm hgb 9.3---->9.6 GERD (gastroesophageal reflux disease) Hyperlipidemia Problem: Chronic Qualifiers: Hyperlipidemia type: H Hypothyroidism stable continue with synthroid Morbid obesity Problem: Chronic Qualifiers: Obesity type: due to excess calories Qualified Code(s): E66.01 - Morbid ( severe) obesity due to excess calories Hypernatremia- resolved Problem: Acute Angina at rest: resolved Angina due to acute on chronic systolic CHF, improving, but not gone. Also, still has orthopnea, PND and TURPIN, though all of these are improving too. Hypokalemia- resolved likely due to diuretics usage. continue with k-dur 20 meq - Problems/Diagnosis (1) Chronic systolic CHF (congestive heart failure) Problem: Chronic (2) COPD (chronic obstructive pulmonary disease) Problem: Chronic Qualifiers: COPD type: unspecified COPD Qualified Code(s): J44.9 - Chronic obstructive pulmonary disease, unspecified (3) Type II diabetes mellitus Problem: Chronic Qualifiers: Diabetes mellitus complication status: without complication Diabetes mellitus intermediate accountant insulin use: with half-way use Qualified Code(s): E11.9 - Type 2 diabetes mellitus without complications; Z79.4 - nursing home (current) use of insulin (4) CKD (chronic kidney disease), stage III Problem: Chronic (5) Hypokalemia Problem: Acute
[2016-05-28] MEDS ORDERED: MIRTAZAPINE 15 MG TABLET PO SCH (21:00)
[2016-05-28] MEDS: ALPRAZolam 0.25 MG TABLET PO PRN (22:09)
[2016-05-28] MEDS: ALBUTEROL SULFATE 2.5 MG/0.5 ML VIAL.NEB IH PRN (22:14)
[2016-05-29 05:55] LABS: Anion Gap 12.1 mmol/L (6.8-13.8); BUN/Creatinine Ratio 16.8 (9.0-21.6); Calcium * 8.9 mg/dL (7.9-10.9); Carbon Dioxide 32.4 mmol/L (24-32.6); Estimated Creat Clear 26.5; Potassium 3.5 mmol/L (3.4-4.6)
[2016-05-29] MEDS: PANTOPRAZOLE SODIUM 40 MG TABLET.EC PO SCH (06:34)
[2016-05-29] MEDS: FUROSEMIDE 10 MG/ML VIAL IV SCH ×3 (07:29→23:45)
[2016-05-29] MEDS: TROLAMINE SALICYLATE 90 APPL TUBE TP SCH ×2 (08:39→20:55)
[2016-05-29] MEDS: RIVAROXABAN 20 MG TABLET PO SCH (08:40)
[2016-05-29] MEDS: LEVOTHYROXINE SODIUM 125 MCG TABLET PO SCH (08:41)
[2016-05-29] MEDS: INSULIN REGULAR, HUMAN 100 UNITS/ML VIAL SC SCH ×3 (08:41→16:38)
[2016-05-29] MEDS: INSULIN GLARGINE,HUM.REC.ANLOG 100 UNITS/ML VIAL SC SCH ×2 (08:42→20:50)
[2016-05-29] MEDS: CARVEDILOL 3.125 MG TABLET PO SCH ×2 (08:48→20:53)
[2016-05-29] MEDS: ENALAPRIL MALEATE 5 MG TABLET PO SCH (08:48)
[2016-05-29] MEDS: SPIRONOLACTONE 25 MG TABLET PO SCH ×2 (08:48→20:53)
[2016-05-29] MEDS: POTASSIUM CHLORIDE 10 MEQ TABLET.SA PO SCH ×2 (08:48→20:52)
--- NOTE | 2016-05-29 11:24 | PN ---
<Dave Keenan - Last Filed: 05/29/16 11:33> Subjective - Date and Time Seen Date: 05/29/16 Time: 11:12 Subjective Narrative: patient seen today walking in [place], pt stated she was feeling shortness of breath upon walking back to her room. However going to the bathroom don't cause much shortness of breath. Edema to her legs have improved tremendously and anticipating going home later today. Objective - Review of Systems Generalized/Overall Review: Reports: No Symptoms Reported EENTM: Reports: No Symptoms Reported Respiratory: Reports: Shortness of Breath - on exertion Cardiac: Reports: Edema - BLE edema improve and pt demonstated she is able to now move her toes. Abdominal: Reports: No Symptoms Reported Musculoskeletal Complaints: Reports: No Symptoms Reported Neurological: Reports: No Symptoms Reported Skin: Reports: No Symptoms Reported - Vitals Vitals: Last Vital Signs Temp 36.6 C 05/29/16 10:18 Pulse 100 05/29/16 10:18 Resp 20 05/29/16 10:18 BP 103/59 05/29/16 10:18 Pulse Ox 95 05/29/16 10:18 - Abnormal Lab Findings Abnormal Lab Findings: Abnormal Lab Results 05/29/16 Range/Units 05:21 BUN 29 H (3-23) mg/dL Creatinine 1.73 H (0.4-1.4) mg/dL Est GFR (Non-Af Amer) 31 L (60-130) mL/min B-Natriuretic Peptide 3499 H (5-325) pg/mL - Exam Constitutional: Present: Alert, Oriented x3, Cooperative, Well developed, Well nourished, Mild distress, Morbidly obese ENT Exam: Present: normal ENT inspection Respiratory: Present: chest non-tender, lungs clear, no respiratory distress, no accessory muscle use, decreased breath sounds Cardiovascular/Chest: Present: normal peripheral pulses, no JVD Abdomen: Present: Normal bowel sounds, soft, nontender, nondistended, no rebound tenderness Extremity: Present: lower extremity edema - BLE pitting edema improving Skin Exam: Present: normal color, warm/dry, no cyanosis Neurologic: Present: oriented x 3 Appearance: Present: appropriate appearance Assessment/Plan Plan Narrative: Acute on chronic systolic (congestive) heart failure on adm BNP 5096----> 4384-----> 3812 -----> 3499 continue to improve Continue with IV lasix for diuresis. Aldactone, enalapril and coreg were added to regimen today. adjusted dose of k- dur 20meq-----> k-dur 10meq Daily weight 136.8kg----> 136.4kg----->134.7kg ------>132.3kg continue to have improvement strict I/O, low sodium diet 02/2012 2 D-echo EF 40%---> mild lateral wall hypokinesis, lV systolic function midly reduced. 04/2013 2D echo: EF 40%--- mod LVH, left ventricular midly dilated, mild global hypokinesis, transmitral spectral doppler flow suggestive restrictive physiology. 04/2016 2D-echo pending Acute renal failure superimposed on stage 3 chronic kidney disease Problem: Acute On adm cre 1.66---->1.56---->1.54 ----.1.62 ---->1.73 continual rise, pt is been seen by nephrology in [place] continue to monitor BMP in am COPD (chronic obstructive pulmonary disease) Continue with supplemented oxygen continue with nebulizer treatments oxygen walk test Type II diabetes mellitus- stable 05/28/16 insulin dose and frequency adjusted and BG today improved in the morning continue with Humulin 5 units TID with meals and lantus 10units Q12hrs Accu-check and sliding scale insulin Depression stable Ensure supplements with meals Tremor Problem: Chronic Weakness generalized Problem: Acute ASHD (arteriosclerotic heart disease) Problem: Chronic Anemia of chronic disease on adm hgb 9.3---->9.6 GERD (gastroesophageal reflux disease) Hyperlipidemia Problem: Chronic Qualifiers: Hyperlipidemia type: H Hypothyroidism stable continue with synthroid Morbid obesity Problem: Chronic Qualifiers: Obesity type: due to excess calories Qualified Code(s): E66.01 - Morbid ( severe) obesity due to excess calories Hypernatremia- resolved Problem: Acute Angina at rest: resolved Angina due to acute on chronic systolic CHF, improving, but not gone. Also, still has orthopnea, PND and TURPIN, though all of these are improving too. Hypokalemia- resolved likely due to diuretics usage. k-dur 10 meq adjusted today, aldactone initiated - Problems/Diagnosis (1) Chronic systolic CHF (congestive heart failure) Problem: Chronic (2) COPD (chronic obstructive pulmonary disease) Problem: Chronic QualifierTitle: COPD type: unspecified COPD Qualified Code(s): J44.9 - Chronic obstructive pulmonary disease, unspecified (3) Type II diabetes mellitus Problem: Chronic QualifierTitle: Diabetes mellitus complication status: without complication Diabetes mellitus supervisor intermediates insulin use: with penitentiary use Qualified Code(s): E11.9 - Type 2 diabetes mellitus without complications; Z79.4 - intermodal truck driver (current) use of insulin (4) CKD (chronic kidney disease), stage III Problem: Chronic (5) Hypokalemia Problem: Acute <Juan Meza - Last Filed: 05/29/16 18:05> Objective - Vitals Vitals: Last Vital Signs Temp 36.7 C 05/29/16 14:13 Pulse 97 05/29/16 15:20 Resp 20 05/29/16 14:13 BP 101/54 05/29/16 15:20 Pulse Ox 94 05/29/16 14:13 - Abnormal Lab Findings Abnormal Lab Findings: Abnormal Lab Results 05/29/16 Range/Units 05:21 BUN 29 H (3-23) mg/dL Creatinine 1.73 H (0.4-1.4) mg/dL Est GFR (Non-Af Amer) 31 L (60-130) mL/min B-Natriuretic Peptide 3499 H (5-325) pg/mL Assessment/Plan Plan Narrative: Record reviewed. Patient examined. I directly supervised all of Dave Keenan's care for this patient. Patient is improving. Echo report is now available. EF now less than 25%! Diastolic dysfunction, pulmonary hypertension with RVSP of 59 mm Hg, and mild to moderate MR. Will continue IV Lasix, monitor labs, add beta nadja and emmanuel. Estimate stay of 3-4 more days. - Problems/Diagnosis (1) Acute renal failure superimposed on stage 3 chronic kidney disease Problem: Acute (2) Angina at rest Problem: Acute (3) Hypokalemia Problem: Acute (4) Acute on chronic systolic (congestive) heart failure Problem: Acute (5) Tremor Problem: Chronic (6) Weakness generalized Problem: Acute (7) ASHD (arteriosclerotic heart disease) Problem: Chronic (8) Anemia of chronic disease Problem: Chronic (9) COPD (chronic obstructive pulmonary disease) Problem: Chronic Qualifiers: COPD type: unspecified COPD Qualified Code(s): J44.9 - Chronic obstructive pulmonary disease, unspecified (10) Depression Problem: Chronic Qualifiers: Major depression recurrence: recurrent Active/Remission status: currently active Major depression episode severity: mild Qualified Code(s): F33.0 - Major depressive disorder, recurrent, mild (11) GERD (gastroesophageal reflux disease) Problem: Chronic Qualifiers: Esophagitis presence: without esophagitis Qualified Code(s): K21.9 - Gastro -esophageal reflux disease without esophagitis (12) Hyperlipidemia Problem: Chronic Qualifiers: (13) Hypothyroidism Problem: Chronic Qualifiers: Hypothyroidism type: acquired (14) Morbid obesity Problem: Chronic Qualifiers: Obesity type: due to excess calories Qualified Code(s): E66.01 - Morbid ( severe) obesity due to excess calories (15) Type II diabetes mellitus Problem: Chronic Qualifiers: Diabetes mellitus complication status: without complication Diabetes mellitus penitentiary insulin use: with supervisor intermediates use Qualified Code(s): E11.9 - Type 2 diabetes mellitus without complications; Z79.4 - intermodal truck driver (current) use of insulin (16) Hypernatremia Problem: Acute
--- NOTE | 2016-05-29 16:18 | ECHO ---
This report is available in the EMR
[2016-05-30 05:52] LABS: Hematocrit 31.4 % (37.0-47.0); Hemoglobin 9.7 gm/dL (12.5-16.0); Mean Cell Volume 85.6 fl (78-100); Mean Corpuscular Hemoglobin 26.4 pg (27-31); Mean Corpuscular Hgb Conc 30.9 g/dl (32-36); Mean Platelet Volume 9.7 fl (6.0-9.5); Neutrophil # 6.3 K/mm3 (1.3-6.0); Neutrophil % 67.4 % (42-75.0); Platelet Count 268 K/mm3 (150-450); Red Blood Count 3.67 M/mm3 (4.2-5.4); Red Cell Distribution Width 17.4 % (11.5-14.0); White Blood Count 9.4 K/mm3 (4.0-10.5)
[2016-05-30 06:04] LABS: BUN/Creatinine Ratio 19.9 (9.0-21.6); Calcium * 9.1 mg/dL (7.9-10.9); Carbon Dioxide 34.5 mmol/L (24-32.6); Estimated Creat Clear 29.4; Potassium 3.5 mmol/L (3.4-4.6)
[2016-05-30] MEDS: PANTOPRAZOLE SODIUM 40 MG TABLET.EC PO SCH (06:16)
[2016-05-30] MEDS: FUROSEMIDE 10 MG/ML VIAL IV SCH ×3 (07:19→23:53)
[2016-05-30] MEDS: INSULIN REGULAR, HUMAN 100 UNITS/ML VIAL SC SCH ×3 (08:03→16:20)
[2016-05-30] MEDS: TROLAMINE SALICYLATE 90 APPL TUBE TP SCH ×2 (08:31→20:16)
[2016-05-30] MEDS: RIVAROXABAN 20 MG TABLET PO SCH (08:31)
[2016-05-30] MEDS: POTASSIUM CHLORIDE 10 MEQ TABLET.SA PO SCH ×2 (08:32→20:16)
[2016-05-30] MEDS: ENALAPRIL MALEATE 5 MG TABLET PO SCH (08:32)
[2016-05-30] MEDS: SPIRONOLACTONE 25 MG TABLET PO SCH ×2 (08:32→20:15)
[2016-05-30] MEDS: LEVOTHYROXINE SODIUM 125 MCG TABLET PO SCH (08:33)
[2016-05-30] MEDS: INSULIN GLARGINE,HUM.REC.ANLOG 100 UNITS/ML VIAL SC SCH ×2 (08:33→20:19)
[2016-05-30] MEDS: CARVEDILOL 3.125 MG TABLET PO SCH ×2 (08:33→20:11)
--- NOTE | 2016-05-30 15:12 | PN ---
Subjective - Date and Time Seen Date: 05/30/16 Time: 08:10 Subjective Narrative: Still with orthopnea and PND, but improving. Also, TURPIN, which is now improving. Current echo reveals markedly reduced systolic function. Treatment now is IV Lasix. Chest pain, that is angina, has improved. Musculoskeletal chest pain has also improved. Objective - Review of Systems EENTM: Reports: No Symptoms Reported Respiratory: Reports: Shortness of Breath Cardiac: Reports: No Symptoms Reported Abdominal: Reports: No Symptoms Reported Genitourinary Symptoms: Reports: No Symptoms Reported Musculoskeletal Complaints: Reports: No Symptoms Reported Neurological: Reports: No Symptoms Reported Skin: Reports: No Symptoms Reported Endocrine: Reports: No Symptoms Reported Misc: All systems neg except as marked - Vitals Vitals: Last Vital Signs Selected Entries 05/30/16 05/30/16 06:15 07:19 Temperature 36.7 C Temperature Oral Source Pulse Rate 89 90 Respiratory 16 Rate Blood Pressure 96/54 96/54 Blood Pressure Sitting Position O2 Sat by Pulse 93 Oximetry Oxygen Delivery Room Air Method - Abnormal Lab Findings Abnormal Lab Findings: Abnormal Lab Results 05/30/16 05/30/16 Range/Units 05:50 05:50 RBC 3.67 L (4.2-5.4) M/mm3 Hgb 9.7 L (12.5-16.0) gm/dL Hct 31.4 L (37.0-47.0) % MCH 26.4 L (27-31) pg MCHC 30.9 L (32-36) g/dl RDW 17.4 H (11.5-14.0) % MPV 9.7 H (6.0-9.5) fl Neutrophils # 6.3 H (1.3-6.0) K/mm3 Carbon Dioxide 34.5 H (24-32.6) mmol/L BUN 31 H (3-23) mg/dL Creatinine 1.56 H (0.4-1.4) mg/dL Est GFR (Non-Af Amer) 35 L (60-130) mL/min Random Glucose 134 H D (70-110) mg/dL - Exam Constitutional: Present: Alert, Oriented x3, Cooperative, Well developed, No distress, Morbidly obese ENT Exam: Present: normal ENT inspection, hearing grossly normal Neck: Present: normal inspection Respiratory: Present: lungs clear, no respiratory distress Cardiovascular/Chest: Present: regular rate, rhythm, no murmur Abdomen: Present: Normal bowel sounds, soft, nontender, nondistended, no rebound tenderness, no hepatospenomegaly, no masses, obese Extremity: Present: lower extremity edema Skin Exam: Present: normal color, warm/dry, no cyanosis Neurologic: Present: alert, oriented x 3 Appearance: Present: appropriate appearance, appropriate insight, neat, no memory impairment Eye contact: Present: cooperative, good eye contact, normal speech Thoughts: Present: normal thought pattern Assessment/Plan Plan Narrative: Continue IV Lasix. Chemistries tomorrow. Home in two days. - Problems/Diagnosis (1) Acute renal failure superimposed on stage 3 chronic kidney disease Problem: Acute (2) Angina at rest Problem: Acute (3) Hypokalemia Problem: Acute (4) Acute on chronic systolic (congestive) heart failure Problem: Acute (5) Tremor Problem: Chronic (6) Weakness generalized Problem: Acute (7) ASHD (arteriosclerotic heart disease) Problem: Chronic (8) Anemia of chronic disease Problem: Chronic (9) COPD (chronic obstructive pulmonary disease) Problem: Chronic Qualifiers: COPD type: unspecified COPD Qualified Code(s): J44.9 - Chronic obstructive pulmonary disease, unspecified (10) Depression Problem: Chronic Qualifiers: Major depression recurrence: recurrent Active/Remission status: currently active Major depression episode severity: mild Qualified Code(s): F33.0 - Major depressive disorder, recurrent, mild (11) GERD (gastroesophageal reflux disease) Problem: Chronic Qualifiers: Esophagitis presence: without esophagitis Qualified Code(s): K21.9 - Gastro -esophageal reflux disease without esophagitis (12) Hyperlipidemia Problem: Chronic Qualifiers: (13) Hypothyroidism Problem: Chronic Qualifiers: Hypothyroidism type: acquired (14) Morbid obesity Problem: Chronic Qualifiers: Obesity type: due to excess calories Qualified Code(s): E66.01 - Morbid ( severe) obesity due to excess calories (15) Type II diabetes mellitus Problem: Chronic Qualifiers: Diabetes mellitus complication status: without complication Diabetes mellitus director long term care insulin use: with director long term care use Qualified Code(s): E11.9 - Type 2 diabetes mellitus without complications; Z79.4 - [facility] (current) use of insulin (16) Hypernatremia Problem: Acute
[2016-05-30] MEDS: ALPRAZolam 0.25 MG TABLET PO PRN (21:40)
[2016-05-31 05:43] LABS: Anion Gap 10.6 mmol/L (6.8-13.8); BUN/Creatinine Ratio 17.6 (9.0-21.6); Calcium * 8.9 mg/dL (7.9-10.9); Carbon Dioxide 33.1 mmol/L (24-32.6); Potassium 3.7 mmol/L (3.4-4.6)
[2016-05-31] MEDS: FUROSEMIDE 10 MG/ML VIAL IV SCH ×3 (07:00→23:38)
[2016-05-31] MEDS: PANTOPRAZOLE SODIUM 40 MG TABLET.EC PO SCH (07:00)
[2016-05-31] MEDS: RIVAROXABAN 20 MG TABLET PO SCH (09:01)
[2016-05-31] MEDS: SPIRONOLACTONE 25 MG TABLET PO SCH ×2 (09:01→20:33)
[2016-05-31] MEDS: LEVOTHYROXINE SODIUM 125 MCG TABLET PO SCH (09:02)
[2016-05-31] MEDS: INSULIN GLARGINE,HUM.REC.ANLOG 100 UNITS/ML VIAL SC SCH ×2 (09:02→20:28)
[2016-05-31] MEDS: POTASSIUM CHLORIDE 10 MEQ TABLET.SA PO SCH ×2 (09:02→20:33)
[2016-05-31] MEDS: TROLAMINE SALICYLATE 90 APPL TUBE TP SCH ×2 (09:03→20:30)
[2016-05-31] MEDS: INSULIN REGULAR, HUMAN 100 UNITS/ML VIAL SC SCH ×3 (09:04→17:05)
[2016-05-31] MEDS: ENALAPRIL MALEATE 5 MG TABLET PO SCH (09:08)
[2016-05-31] MEDS: CARVEDILOL 3.125 MG TABLET PO SCH ×2 (09:08→20:30)
--- NOTE | 2016-05-31 20:56 | PN ---
Subjective - Date and Time Seen Date: 05/31/16 Time: 06:55 Subjective Narrative: Still with orthopnea and PND, but improving. Also, TURPIN, which is now improving. Current echo reveals markedly reduced systolic function. Treatment now is IV Lasix. Chest pain, that is angina, has improved. Musculoskeletal chest pain has also improved. Objective - Review of Systems Generalized/Overall Review: Reports: No Symptoms Reported EENTM: Reports: No Symptoms Reported Respiratory: Reports: Shortness of Breath Cardiac: Reports: No Symptoms Reported Abdominal: Reports: No Symptoms Reported Genitourinary Symptoms: Reports: No Symptoms Reported Musculoskeletal Complaints: Reports: No Symptoms Reported Neurological: Reports: No Symptoms Reported Skin: Reports: No Symptoms Reported Endocrine: Reports: No Symptoms Reported Misc: All systems neg except as marked - Vitals Vitals: Last Vital Signs Selected Entries 05/31/16 06:24 Temperature 36.4 C L Temperature Oral Source Pulse Rate 94 Respiratory 18 Rate Respiratory Normal Depth Blood Pressure 97/57 Blood Pressure Supine Position O2 Sat by Pulse 95 Oximetry Oxygen Delivery Room Air Method - Abnormal Lab Findings Abnormal Lab Findings: Abnormal Lab Results 05/31/16 Range/Units 05:10 Carbon Dioxide 33.1 H (24-32.6) mmol/L BUN 30 H (3-23) mg/dL Creatinine 1.70 H (0.4-1.4) mg/dL Est GFR (Non-Af Amer) 32 L (60-130) mL/min Random Glucose 204 H D (70-110) mg/dL - Exam Constitutional: Present: Alert, Oriented x3, Cooperative, Well developed, Well nourished, No distress ENT Exam: Present: normal ENT inspection Neck: Present: normal inspection Respiratory: Present: lungs clear, no respiratory distress Cardiovascular/Chest: Present: regular rate, rhythm, no murmur Abdomen: Present: Normal bowel sounds, soft, nontender, nondistended, no rebound tenderness, no hepatospenomegaly, no masses Extremity: Present: lower extremity edema Skin Exam: Present: normal color, warm/dry, no cyanosis Neurologic: Present: alert, oriented x 3 Appearance: Present: appropriate appearance, neat Eye contact: Present: cooperative, good eye contact, normal speech Thoughts: Present: normal thought pattern Assessment/Plan Plan Narrative: Improving nicely. Follow labs. Continue IV Lasix. Maybe back to [place] tomorrow. - Problems/Diagnosis (1) Acute renal failure superimposed on stage 3 chronic kidney disease Problem: Acute (2) Angina at rest Problem: Acute (3) Hypokalemia Problem: Acute (4) Acute on chronic systolic (congestive) heart failure Problem: Acute (5) Tremor Problem: Chronic (6) Weakness generalized Problem: Acute (7) ASHD (arteriosclerotic heart disease) Problem: Chronic (8) Anemia of chronic disease Problem: Chronic (9) COPD (chronic obstructive pulmonary disease) Problem: Chronic Qualifiers: COPD type: unspecified COPD Qualified Code(s): J44.9 - Chronic obstructive pulmonary disease, unspecified (10) Depression Problem: Chronic Qualifiers: Major depression recurrence: recurrent Active/Remission status: currently active Major depression episode severity: mild Qualified Code(s): F33.0 - Major depressive disorder, recurrent, mild (11) GERD (gastroesophageal reflux disease) Problem: Chronic Qualifiers: Esophagitis presence: without esophagitis Qualified Code(s): K21.9 - Gastro -esophageal reflux disease without esophagitis (12) Hyperlipidemia Problem: Chronic Qualifiers: (13) Hypothyroidism Problem: Chronic Qualifiers: Hypothyroidism type: acquired (14) Morbid obesity Problem: Chronic Qualifiers: Obesity type: due to excess calories Qualified Code(s): E66.01 - Morbid ( severe) obesity due to excess calories (15) Type II diabetes mellitus Problem: Chronic Qualifiers: Diabetes mellitus complication status: without complication Diabetes mellitus alf insulin use: with intermission coordinator use Qualified Code(s): E11.9 - Type 2 diabetes mellitus without complications; Z79.4 - ad terminal makeup operator (current) use of insulin (16) Hypernatremia Problem: Acute
[2016-05-31] MEDS: ALPRAZolam 0.25 MG TABLET PO PRN (23:36)
[2016-06-01] MEDS: MAG HYDROX/ALUMINUM HYD/SIMETH 30 ML UDC PO PRN (00:07)
[2016-06-01] MEDS: PANTOPRAZOLE SODIUM 40 MG TABLET.EC PO SCH (06:51)
[2016-06-01 07:21] LABS: Anion Gap 9.5 mmol/L (6.8-13.8); BUN/Creatinine Ratio 18.8 (9.0-21.6); Calcium * 8.9 mg/dL (7.9-10.9); Carbon Dioxide 33.3 mmol/L (24-32.6); Estimated Creat Clear 25.3; Potassium 3.8 mmol/L (3.4-4.6)
[2016-06-01] MEDS: RIVAROXABAN 20 MG TABLET PO SCH (08:39)
[2016-06-01] MEDS: LEVOTHYROXINE SODIUM 125 MCG TABLET PO SCH (08:39)
[2016-06-01] MEDS: ENALAPRIL MALEATE 5 MG TABLET PO SCH (08:39)
[2016-06-01] MEDS: POTASSIUM CHLORIDE 10 MEQ TABLET.SA PO SCH (08:39)
[2016-06-01] MEDS: CARVEDILOL 3.125 MG TABLET PO SCH (08:39)
[2016-06-01] MEDS: SPIRONOLACTONE 25 MG TABLET PO SCH (08:39)
[2016-06-01] MEDS: INSULIN GLARGINE,HUM.REC.ANLOG 100 UNITS/ML VIAL SC SCH (08:40)
[2016-06-01] MEDS: TROLAMINE SALICYLATE 90 APPL TUBE TP SCH (08:43)
[2016-06-01] MEDS: INSULIN REGULAR, HUMAN 100 UNITS/ML VIAL SC SCH ×2 (08:43→13:41)
[2016-06-01] MEDS: FUROSEMIDE 10 MG/ML VIAL IV SCH (09:54)
--- NOTE | 2016-06-01 10:31 | DS ---
(1) Acute on chronic systolic (congestive) heart failure Diagnosis(s): Tess is a 70 yo female that was admitted with chest pain and shortness of breath. She had pulmonary congestion on chest xray and elevated BNP. There was no evidence of acute HI. Echo was obtained which showed systolic congestive heart failure. She was placed vivek Lasix IV and diuresed. She had improvement of symptoms that resolved back to her baseline. She was educated to stay as active as possible, to avoid sodium/salt, and to monitor weight/edema. At discharge she was no longer short of breath, breathing on room air, and in no chest pain. Problem: Acute Procedures Performed: none [facility]charge Disposition: [facility] Disposition: [facility] Condition: Stable Discharge Activity: Activity as tolerated Discharge Diet: Low salt Discharge Level of Care:: [facility] - Skilled Nursing Referrals: Adan West MD [Primary Care Provider] - Additional Patient Instructions (free text): From [facility], Please call and fax discharge information to them when discharged. Phone number [phone]. To arrange transportation, call Gloria at [phone]. Prescriptions (Any new or edited meds): Carvedilol [Coreg] 3.125 mg PO BID #60 tablet Enalapril Maleate [Vasotec] 2.5 mg PO DAILY #30 tablet Spironolactone [Aldactone] 25 mg PO DAILY #30 tablet Complete Home Medications List: Complete Home Medication List: Albuterol Sulfate [Proair Hfa] 2 puff IH Q4H PRN 05/25/16 Furosemide [Lasix] 80 mg PO BID 05/25/16 Insulin Glargine,Hum.rec.anlog [Lantus] 50 unit SQ BID 05/25/16 Insulin Regular, Human [Humulin R] 5 unit SC ACHS 05/25/16 Levothyroxine Sodium [Synthroid] 125 mcg PO DAILY 05/25/16 Nitroglycerin [Nitrostat] 0.4 mg SL Q5MIN PRN 05/25/16 Omeprazole 40 mg PO DAILY 05/25/16 Rivaroxaban [Xarelto] 20 mg PO DAILY 05/25/16 traMADol HCL [Ultram] 50 mg PO Q12H PRN 05/25/16 Carvedilol [Coreg] 3.125 mg PO BID #60 tablet 06/01/16 Enalapril Maleate [Vasotec] 2.5 mg PO DAILY #30 tablet 06/01/16 Spironolactone [Aldactone] 25 mg PO DAILY #30 tablet 06/01/16
[2016-06-01 10:55] VITALS: BP 106/57
== END 2016-06-01 13:55 | DRG 292 ==
LOC: ER 02:15 → MS 03:45 → OBSVTOIN 05-26 17:49
PROVIDERS: ADMIT Nurse Practitioner Gerontology; ATTEND Allergy & Immunology
DX: I50.23 Acute on chronic systolic (congestive) heart failure (principal); N17.9 Acute kidney failure, unspecified; Z68.43 Body mass index [BMI] 50.0-59.9, adult; E87.6 Hypokalemia; D63.8 Anemia in other chronic diseases classified elsewhere; E08.649 Diabetes mellitus due to underlying condition with hypoglycemia without coma; E03.9 Hypothyroidism, unspecified; I12.9 Hypertensive chronic kidney disease with stage 1 through stage 4 chronic kidney disease, or unspecified chronic kidney disease; N18.3 Chronic kidney disease, stage 3 (moderate); K21.9 Gastro-esophageal reflux disease without esophagitis; E78.5 Hyperlipidemia, unspecified; I20.8 Other forms of angina pectoris; E66.01 Morbid (severe) obesity due to excess calories; Z79.4 Long term (current) use of insulin
CPT/HCPCS: 36415; 71010; 80048; 80053; 82947; 83880; 84439; 84443; 84484; 85025; 87081; 93005; 93306; 94640; 96365; 96366; 99284; G0378